=== PATIENT | female | born 1970 | race African-American/Black ===

== ENCOUNTER 2018-02-17 20:20 | Emergency (ER) | payer OTHER ==
[2018-02-17 20:47] VITALS: BP 126/77; PULSE 85; TEMP 98.1; BMI 23.3
[2018-02-17] MEDS ORDERED: IBUPROFEN 400 MG TABLET (FP) PO ONE (21:23)
--- NOTE | 2018-02-17 21:29 | PDOC ---
History of Present Illness - General Chief Complaint: Pain Stated Complaint: RT FOOT PAIN Time Seen by Provider: 02/17/18 20:56 History Source: Patient - History of Present Illness Occurred: reports: this afternoon Lower Extremity Pain Location: right: foot Method of Injury: Yes: twisted Past History - Past Medical History Allergies/Adverse Reactions: Allergies Allergy/AdvReac Type Severity Reaction Status Date / Time No Known Allergies Allergy Verified 02/17/18 20:44 Asthma: No Cancer: No Cardiac Disorders: No CVA: No COPD: No DVT: No - Suicide/Smoking/Psychosocial Hx Smoking History: Never smoked Information on smoking cessation initiated: No Hx Alcohol Use: No Drug/Substance Use Hx: No Substance Use Type: None Review of Systems - Review of Systems Musculoskeletal: Yes: Joint Pain, Joint Swelling *Physical Exam - Vital Signs Last Vital Signs Temp Pulse Resp BP Pulse Ox 98.1 F 85 20 126/77 100 02/17/18 20:44 02/17/18 20:44 02/17/18 20:44 02/17/18 20:44 02/17/18 20:44 - Physical Exam General Appearance: Yes: Appropriately Dressed, Mild Distress HEENT: positive: Normal Voice Neck: positive: Supple Respiratory/Chest: negative: Respiratory Distress Extremity: positive: Tender (w/ minimal swelling to proximal aspect of R 5th metatarsal) ED Treatment Course - RADIOLOGY Radiology Studies Ordered: Category Date Time Status ANKLE & FOOT-RIGHT* [RAD] Stat Radiology 02/17/18 20:56 Taken Medical Decision Making - Medical Decision Making 02/17/18 21:30 47-year-old female presents with right foot pain and swelling after hiking today. States she lost her footing and twisted right foot. Has some pain and swelling to proximal right fifth metatarsal. X-ray shows non-displaced fracture to base of R fifth metatarsal. Ortho shoe given. Patient has own crutches. Will dcto take Tylenol [id number] as needed for pain. Ortho referral given *DC/Admit/Observation/Transfer Diagnosis at time of Disposition: Metatarsal fracture Qualifiers: Encounter type: initial encounter Metatarsal bone: fifth Fracture type: closed Fracture alignment: nondisplaced Laterality: right Qualified Code(s): S92.354A - Nondisplaced fracture of fifth metatarsal bone, right foot, initial encounter for closed fracture - Discharge Dispostion Disposition: HOME Condition at time of disposition: Good - Referrals - Patient Instructions Printed Discharge Instructions: DI for Foot Fracture Additional Instructions: You have afoot fracture. Take Motrin as needed for pain. Use crutches as needed for weightbearing. Please follow-up with Dr. Sim of orthopedics in 2 weeks - Post Discharge Activity Forms/Work/School Notes: Back to Work
== END 2018-02-17 21:59 | disposition home or self-care (01) ==
LOC: JERFT 20:20
DX: S92.354A Nondisplaced fracture of fifth metatarsal bone, right foot, initial encounter for closed fracture (principal); X50.1XXA Overexertion from prolonged static or awkward postures, initial encounter; Y93.01 Activity, walking, marching and hiking; Y92.828 Other wilderness area as the place of occurrence of the external cause; Y99.8 Other external cause status
CPT/HCPCS: 73610-TC-RT-FY; 73630-TC-RT-FY; 99281-25